=== PATIENT | male | born 1995 | race Caucasian/White ===

== ENCOUNTER 2017-09-09 11:44 | Emergency (ER) | payer OTHER ==
[2017-09-09 11:49] VITALS: BP 112/67; PULSE 99; RESP 16; TEMP 98.1; O2SAT 98
--- NOTE | 2017-09-09 12:03 | EDPHY ---
H & P Stated Complaint: Injured L ankle this morning;slipped on ice Time Seen by Provider: 09/09/17 12:02 HPI/ROS: HPI: This is a 21-year-old male who presents with Chief Complaint: Injured L ankle this morning;slipped on ice Location: Left lateral ankle Quality: Injury Duration: This morning Signs and Symptoms: No bleeding, no radiation, no numbness, no weakness, no tingling, no incontinence, no decreased range of motion, no swelling, no pain, no fever Timing: Acute Severity: 7 out 10 Context: Patient reports that he was walking out of his apartment today when he accidentally slipped on the ice and twisted his left ankle. He complains of moderate constant, nonradiating pain in the lateral aspect of his ankle. Pain increased with weight-bearing. He has not applied ice or taking any over-the- counter medications. Denies any paresthesias/weakness/decreased range of motion. He Reports that there is swelling in the lateral aspect of his ankle. tetanus current. Denies LOC/head injury/neck pain/dizziness/nausea/vomiting/ amnesia. Modifying Factors: None Comment: ROS: see HPI Constitutional: No fever, no chills, no weight loss Eyes: No blurred vision Respiratory: No shortness of breath, no cough Cardiovascular: No chest pain Gastrointestinal: No nausea, no vomiting no diarrhea Genitourinary: No dysuria Extremities: No myalgias Neurologic: No weakness, no numbness Skin: No rashes Hematologic: No bruising, no bleeding MEDICAL/SURGICAL/SOCIAL HISTORY: Medical history: Attention deficit hyperactivity disorder Surgical history: Denies Social history: Student CONSTITUTIONAL: Well-developed and well-nourished teenage white male, awake and alert, no obvious distress HEENT: Atraumatic and normocephalic. NECK: supple, no midline tenderness, flexion 45 degrees, extension 45 degrees, right and left lateral flexion 45 degrees. No meningismus. Cardiovascular: Normal S1/S2, regular rate, regular rhythm, without murmur rub or gallop. PULMONARY/CHEST: Symmetrical and nontender. no crepitus. Clear to auscultation bilaterally. Good air movement. No accessory muscle usage. ABDOMEN: Soft, nondistended, nontender, no ecchymosis. PELVIC: no pain with rocking; bilateral hips flexion 125 degrees, extension 30 degrees, with no pain internal rotation and no pain external rotation. BACK: No midline tenderness, no paraspinous spasm, deep tendon reflexes 2/2, no pain with straight leg raise, No foot drop. Achilles reflexes are equal bilaterally. Able to walk on heels and toes without difficulty. EXTREMITIES: 2/2 pulses, strength 5/5, left Ankle: Plantar flexion to 50, dorsiflexion to 20. Foot inversion to 35 degree. Mild tenderness/swelling Anterior talofibular ligament. Mild tenderness/swelling Calcaneofibular ligament, mild tenderness/swelling posterior talofibular ligament, no tenderness /swelling posterior inferior tibiofibular ligament. Achilles tendon intact. DIP/ PIP/MCP flexion/extension intact with good light touch sensation. no deformities , no clubbing, no cyanosis or edema. NEUROLOGICAL: no focal neuro deficits. GCS 15. Light touch sensation intact. SKIN: Warm and dry, no erythema. no rash. Good capillary refill. Source: Patient Exam Limitations: No limitations - Personal History Current Tetanus Diphtheria and Acellular Pertussis (TDAP): Yes - Medical/Surgical History Other PMH: ADHD - Social History Smoking Status: Never smoked Constitutional: Initial Vital Signs Temperature (C) 36.7 C 09/09/17 11:45 Heart Rate 99 09/09/17 11:45 Respiratory Rate 16 09/09/17 11:45 Blood Pressure 112/67 09/09/17 11:45 O2 Sat (%) 98 09/09/17 11:45 O2 Delivery Mode Room Air Allergies/Adverse Reactions: No Known Allergies Allergy (Unverified 09/09/17 11:48) Home Medications: Medication Instructions Recorded NK [No Known Home Meds] 09/09/17 Medical Decision Making - Diagnostics Imaging Results: Imaging Impressions Ankle X-Ray 09/09/17 11:49 Impression: Nothing acute identified. Procedures: Procedure: Splint placement. A left ankle stirrup splint was applied by the Emergency Room spa technician. After application of the splint I returned and re-examined the patient. The splint was adequately immobilizing the joint and distal to the splint the patient's circulation and sensation was intact. ED Course/Re-evaluation: X-ray my read shows mild soft tissue swelling over the lateral malleolus no fracture, no dislocation Given ibuprofen and ice pack applied No signs of neurovascular compromise/tenting of skin/compartment syndrome/ extremities and joints examined above and below area of concern and are neurovascularly intact. Placed in ankle stirrup splint; crutches provided; start with toe-touch weight- bearing status;RICE Differential Diagnosis: Differential diagnosis includes but is not limited to Lisfranc fracture, tibia fracture, fibula fracture, sprain, midfoot fracture, nerve injury. Departure - Departure Disposition: Home, Routine, Self-Care Clinical Impression: Grade 2 ankle sprain Qualifiers: Encounter type: initial encounter Laterality: left Qualified Code(s): S93.402A - Sprain of unspecified ligament of left ankle, initial encounter Condition: Good Instructions: Ankle Sprain (ED), Ankle Stirrup Splint (ED), R.I.C.E. Treatment (ED) Additional Instructions: Wear the ankle stirrup splint while out of bed until pain free. Use crutches to aid ambulation; start with toe-touch weight-bearing status and slowly advance as tolerated. Take Tylenol 650 mg every 4 hours and/or Ibuprofen 600 mg every 8 hours with food as needed for pain. Apply ice for 30 minutes at a time; 2-3 times per day for the next 1-2 days. Follow up with Orthopedics in 1-2 weeks if symptoms persist or worsening. The x-rays obtained in the emergency department today demonstrate no evidence of an obvious fracture. Sometimes fractures are not obvious on the initial set of x-rays performed in the ED. For this reason, you should have repeat x-rays performed in 7-10 days if you are having any pain exclude the possibility of an occult fracture. Referrals: Alli Stewart MD [Medical Doctor] - As per Instructions
[2017-09-09] MEDS ORDERED: IBUPROFEN 800 MG TAB PO ONE (12:22)
--- NOTE | 2017-09-09 14:26 | ASMTCAGE ---
CAGE Additional Comments Attempted to complete CAGE screening following an SBIRT trigger. Pt left prior to meeting with CM. Date Signed: 09/09/2017 02:25 PM Electronically Signed By:Neida Horner RN
== END 2017-09-09 12:41 | disposition home or self-care (01) ==
DX: S93.402A Sprain of unspecified ligament of left ankle, initial encounter (principal); W18.49XA Other slipping, tripping and stumbling without falling, initial encounter; Y92.039 Unspecified place in apartment as the place of occurrence of the external cause; Y99.8 Other external cause status; Y93.01 Activity, walking, marching and hiking
CPT/HCPCS: L4350